=== PATIENT | female | born 1970 | race Hispanic/Latino ===

== ENCOUNTER 2022-04-28 21:16 | Inpatient (IN) | payer SELFPAY ==
[2022-04-28 22:02] LABS: Bilirubin,Urine NEG (Negative); Blood,Urine NEG (Negative); Color,Urine Yellow (Yellow); Protein,Urine <15 mg/dL mg/dL (Negative); RBC,Urine < 1.0 /HPF (0.0-6.0); Urobilinogen,Urine < 2.0 mg/dL (<2.0)
[2022-04-28 22:08] LABS: Basophils # (Auto) 0.1 K/mm3 (0.0-0.1); Basophils % (Auto) 0.7 % (0.0-1.8); Eosinophils # (Auto) 0.4 K/mm3 (0.0-0.4); Hematocrit 46.6 % (30.3-42.9); Hemoglobin 16.1 gm/dl (10.1-14.3); Lymphocytes % (Auto) 10.1 % (13.4-35.0); Mean Corpuscular HGB Conc 35 % (30-34); Mean Corpuscular Volume 84 fl (79-97); Monocytes # (Auto) 0.8 K/mm3 (0.0-0.8); Platelet Count 266 K/mm3 (140-440); Red Blood Count 5.58 M/mm3 (3.65-5.03); Red Cell Distribution Width 13.2 % (13.2-15.2)
[2022-04-28 22:41] LABS: Alanine Aminotransferase 21 units/L (7-56); Albumin 4.8 g/dL (3.9-5); BUN/Creatinine Ratio 29; Blood Urea Nitrogen 20 mg/dL (7-17); Calcium 9.9 mg/dL (8.4-10.2); Hemolysis Index 5
--- NOTE | 2022-04-29 06:32 | Cat Scan Report ---
CT ABDOMEN AND PELVIS WITH CONTRAST INDICATION / CLINICAL INFORMATION: Lower ABD Pain. TECHNIQUE: Axial CT images were obtained through the abdomen and pelvis after IV contrast. All CT sc ans at this location are performed using CT dose reduction for ALARA by means of automated exposure c ontrol. COMPARISON: None available. FINDINGS: LOWER CHEST: No significant abnormality of the imaged chest. LIVER: No focal lesion. No acute findings. GALLBLADDER / BILE DUCTS: No significant abnormality. Biliary ducts grossly unremarkable. SPLEEN: No significant abnormality. PANCREAS: No significant abnormality. ADRENALS: No significant abnormality. KIDNEYS/URETERS: No stones or hydronephrosis. No solid renal lesion. STOMACH / DUODENUM / SMALL BOWEL: The stomach, duodenum, and small bowel demonstrate no significant a bnormality. No specific abnormality of the mesentery demonstrated. COLON: Diverticulosis without acute inflammation. APPENDIX: The appendix remains at upper limits of normal in size measuring 7-8 mm. An appendicolith i s present within the mid appendix. Very minimal periappendiceal inflammatory changes are not excluded . PERITONEUM: No free air or free fluid are present within the abdomen or pelvis. LYMPH NODES: No significant adenopathy. AORTA / ARTERIES: No significant abnormality. IVC / VEINS: No significant abnormality. URINARY BLADDER: No significant abnormality. REPRODUCTIVE ORGANS: Uterus is absent. No significant adnexal abnormality. ADDITIONAL ABDOMINAL/PELVIC FINDINGS: None. SKELETAL SYSTEM: No significant abnormality. IMPRESSION: 1. Very early appendicitis is not excluded. Appendicolith within the mid appendix and very minimal pe riappendiceal inflammatory changes are suggested. Clinical correlation recommended. Signer Name: Jl Reynolds II, MD Signed: 04/29/2022 6:27 AM Workstation Name: [id number]
[2022-04-29] MEDS ORDERED: PIPERACIL/TAZOBACTA 4.5/NS 100 4.5 GM/100 ML VIAL IV ONE (07:15)
[2022-04-29] MEDS ORDERED: SODIUM CHLORIDE 0.9% 1000 ML 1,000 ML IV ONE (07:17)
--- NOTE | 2022-04-29 08:22 | Emergency Department Report ---
ED Abdominal Pain HPI - General Chief Complaint: Abdominal Pain Stated Complaint: VOMITING,SEVERE STOMACH PAIN Time Seen by Provider: 04/29/22 04:59 Source: patient Mode of arrival: Ambulatory Limitations: No Limitations - History of Present Illness Initial Comments: 51-year-old female asthma department complaining of nausea vomiting and abdominal pain off and on since August. She reports having COVID in August and then she developed nausea nausea with some occasional vomiting. Over the last 2 to 3 days she reports a significant worsening in her abdomen abdominal pain across her lower abdomen that radiates over towards the right side is associated with nausea vomiting and some diarrhea as well and a fluctuating fashion. She reports no fever, chills, sweats. No hemoptysis hematemesis hematochezia She presents with her who also confirms he feels like her condition has quickly worsened in the last few days and is concerned of the cause for her discomfort and nauseating symptoms MD Complaint: abdominal pain -: Gradual Radiation: LLQ, RLQ Migration to: no migration Severity: moderate, severe - Related Data Allergies Allergy/AdvReac Type Severity Reaction Status Date / Time No Known Allergies Allergy Unverified 04/28/22 21:27 ED Review of Systems ROS: Stated complaint: VOMITING,SEVERE STOMACH PAIN Other details as noted in HPI Comment: All other systems reviewed and negative ED Past Medical Hx - Past Medical History Previous Medical History?: Yes Hx Diabetes: Yes (Type I) - Surgical History Past Surgical History?: Yes Additional Surgical History: hysterectomy. multiple endometreosis laser sx ED Physical Exam - General Limitations: No Limitations General appearance: alert, in no apparent distress - Head Head exam: Present: atraumatic, normocephalic - Eye Eye exam: Present: normal appearance, PERRL, EOMI - ENT ENT exam: Present: mucous membranes moist - Neck Neck exam: Present: normal inspection - Respiratory Respiratory exam: Present: normal lung sounds bilaterally. Absent: respiratory distress - Cardiovascular Cardiovascular Exam: Present: regular rate, tachycardia. Absent: systolic mur mur, diastolic murmur, rubs, gallop - GI/Abdominal GI/Abdominal exam: Present: soft, tenderness (Across lower abdomen with palpation. No Rovsing, no Carpio Swan there is some discomfort at [place] but no Redmond sign), normal bowel sounds - Extremities Exam Extremities exam: Present: normal inspection, normal capillary refill. Absent: tenderness - Back Exam Back exam: Present: normal inspection. Absent: tenderness, CVA tenderness (L), vertebral tenderness - Neurological Exam Neurological exam: Present: alert, oriented X3 - Psychiatric Psychiatric exam: Present: normal affect, normal mood - Skin Skin exam: Present: warm, dry, intact, normal color. Absent: rash ED Course Vital Signs 04/28/22 21:27 Temperature 98.8 F Pulse Rate 117 H Respiratory 18 Rate Blood Pressure 150/96 O2 Sat by Pulse 97 Oximetry - Consultations Consultation #1: 04/29/22 08:21 Case was discussed with hospitalist Dr. Gates with the findings and laboratory findings as well as vital signs were discussed. Due to the early appendicitis plan is to admit to medicine and the general surgeon will follow along with the case in hopes that this could be treated medically we will initiate Zosyn and fluids Consultation #2: 04/29/22 08:23 Case discussed with the hospitalist who is aware of the of the findings of the CT scan as well as the recommendations of the general surgeon. Plan to admit we will come back to see the patient ED Medical Decision Making - Lab Data Result diagrams: 04/28/22 21:42 04/28/22 21:42 - Radiology Data Radiology results: [place] [address] Cat Scan Report Signed Patient: ARCHANA SERRANO MR#: [id number] : 1970 Acct:[id number] Age/Sex: 51 / F ADM Date: 04/28/22 Loc: ED Attending Dr: Ordering Physician: PRINCESS MILLER Date of Service: 04/29/22 Procedure(s): CT abdomen pelvis w con Accession Number(s): [id number] cc: PRINCESS MILLER CT ABDOMEN AND PELVIS WITH CONTRAST INDICATION / CLINICAL INFORMATION: Lower ABD Pain. TECHNIQUE: Axial CT images were obtained through the abdomen and pelvis after IV contrast. All CT scans at this location are performed using CT dose reduction for ALARA by means of automated exposure control. COMPARISON: None available. FINDINGS: LOWER CHEST: No significant abnormality of the imaged chest. LIVER: No focal lesion. No acute findings. GALLBLADDER / BILE DUCTS: No significant abnormality. Biliary ducts grossly unremarkable. SPLEEN: No significant abnormality. PANCREAS: No significant abnormality. ADRENALS: No significant abnormality. KIDNEYS/URETERS: No stones or hydronephrosis. No solid renal lesion. STOMACH / DUODENUM / SMALL BOWEL: The stomach, duodenum, and small bowel demonstrate no significant abnormality. No specific abnormality of the mesentery demonstrated. COLON: Diverticulosis without acute inflammation. APPENDIX: The appendix remains at upper limits of normal in size measuring 7-8 mm. An appendicolith is present within the mid appendix. Very minimal periappendiceal inflammatory changes are not excluded. PERITONEUM: No free air or free fluid are present within the abdomen or pelvis. LYMPH NODES: No significant adenopathy. AORTA / ARTERIES: No significant abnormality. IVC / VEINS: No significant abnormality. URINARY BLADDER: No significant abnormality. REPRODUCTIVE ORGANS: Uterus is absent. No significant adnexal abnormality. ADDITIONAL ABDOMINAL/PELVIC FINDINGS: None. SKELETAL SYSTEM: No significant abnormality. IMPRESSION: 1. Very early appendicitis is not excluded. Appendicolith within the mid appendix and very minimal periappendiceal inflammatory changes are suggested. Clinical correlation recommended. Signer Name: Herminia Duncan II, MD Signed: 04/29/2022 6:27 AM Workstation Name: [id number] Transcribed By: BENNY Dictated By: HERMINIA DUNCAN II, MD Electronically Authenticated By: HERMINIA DUNCAN II, MD Signed Date/Time: 04/29/22626 DD/ 1 TD/TT: Print Cancel Critical care attestation.: If time is entered above; I have spent that time in minutes in the direct care of this critically ill patient, excluding procedure time. ED Disposition Clinical Impression: Appendicitis, Abdominal pain Disposition: 01 HOME / SELF CARE / HOMELESS Is pt being admited?: Yes Does the pt Need Aspirin: No Condition: Stable Instructions: Abdominal Pain (ED)
--- NOTE | 2022-04-29 08:26 | History and Physical Report ---
History of Present Illness Date of examination: 04/29/22 Date of admission: 04/29/22 Chief complaint: Abdominal pain History of present illness: Patient is a 51-year-old female who presents to the ED with complaints of nausea vomiting and constipation ongoing of for 3 months. Patient was past medical history of hypertension, diabetes mellitus, severe endometriosis status post hysterectomy, prior gastric bypass surgery reports to me that in the last 2 weeks after she had some seafood including salmon her pain got worse. She did tell the ER physician that she has been having this pain on and off for since August says she had COVID. Her history is apparently all over the place. While she did not reveal diarrhea today she did report to the ED if group that she did have diarrhea. She also reports that the sensation she feels in her abdomen feels like burning mainly in the lower part of her abdomen with no radiation. She rated it a 10/10 last night which made her come to the hospital for further evaluation. She tells me that about 3 months ago she was started on Ozempic for her blood sugar control having tried metformin in the past and was unsuccessful she takes this alongside NPH which she takes twice a day and no sliding scale. She reports her A1c is in the 12 range She denies any recent weight loss or unintentional weight loss. She denies any fever. She denies any bile or blood per rectum hematochezia or hemoptysis. She was noted to have leukocytosis Past History Past Medical History: diabetes, hypertension, hyperlipidemia Past Surgical History: hysterectomy (secondary to severe endomiteriosis), Other (gastric bypass) Social history: full code. denies: smoking, alcohol abuse Family history: no significant family history Medications and Allergies Allergies Allergy/AdvReac Type Severity Reaction Status Date / Time No Known Allergies Allergy Unverified 04/28/22 21:27 Review of Systems All systems: negative Constitutional: malaise, lethargy, poor appetite, no weight loss, no weight gain, no fever, no chills, no sweats, no night sweats Cardiovascular: no palpitations, no rapid/irregular heart beat Respiratory: no cough, no cough with sputum, no excessive sputum, no hemoptysis Gastrointestinal: abdominal pain, nausea, vomiting, constipation, no diarrhea, no change in bowel habits, no hematemesis, no coffee ground emesis Exam - Physical Exam Narrative exam: VITAL SIGNS: Reviewed. GENERAL: The patient appears normally developed, Vital signs as documented. HEAD: No signs of head trauma. EYES: Pupils are equal. Extraocular motions intact. EARS: Hearing grossly intact. MOUTH: Oropharynx is normal. NECK: No adenopathy, no JVD. CHEST: Chest with clear breath sounds bilaterally. No wheezes, rales, or rhonchi. CARDIAC: Regular rate and rhythm. S1 and S2, without murmurs, gallops, or rubs. VASCULAR: No Edema. Peripheral pulses normal and equal in all extremities. ABDOMEN: Soft, non tender and non distended. No rebound or guarding, and no masses palpated. Bowel Sounds normal. MUSCULOSKELETAL: Good range of motion of all major joints. Extremities without clubbing, cyanosis or edema. NEUROLOGIC EXAM: Alert and oriented x 3 No focal sensory or strength deficits. Speech normal. Follows commands. PSYCHIATRIC: Mood normal. SKIN: detail exam as documented in skin assessment - Constitutional Vitals: Temp Pulse Resp BP Pulse Ox 98.8 F 117 H 18 150/96 97 04/28/22 21:27 04/28/22 21:27 04/28/22 21:27 04/28/22 21:27 04/28/22 21:27 Results - Labs CBC & Chem 7: 04/28/22 21:42 04/28/22 21:42 Labs: Laboratory Last Values WBC 19.9 K/mm3 (4.5-11.0) H 04/28/22 21:42 RBC 5.58 M/mm3 (3.65-5.03) H 04/28/22 21:42 Hgb 16.1 gm/dl (10.1-14.3) H 04/28/22 21:42 Hct 46.6 % (30.3-42.9) H 04/28/22 21:42 MCV 84 fl (79-97) 04/28/22 21:42 MCH 29 pg (28-32) 04/28/22 21:42 MCHC 35 % (30-34) H 04/28/22 21:42 RDW 13.2 % (13.2-15.2) 04/28/22 21:42 Plt Count 266 K/mm3 (140-440) 04/28/22 21:42 Lymph % (Auto) 10.1 % (13.4-35.0) L 04/28/22 21:42 [place] % (Auto) 4.0 % (0.0-7.3) 04/28/22 21:42 Eos % (Auto) 2.0 % (0.0-4.3) 04/28/22 21:42 Baso % (Auto) 0.7 % (0.0-1.8) 04/28/22 21:42 Lymph # (Auto) 2.0 K/mm3 (1.2-5.4) 04/28/22 21:42 [place] # (Auto) 0.8 K/mm3 (0.0-0.8) 04/28/22 21:42 Eos # (Auto) 0.4 K/mm3 (0.0-0.4) 04/28/22 21:42 Baso # (Auto) 0.1 K/mm3 (0.0-0.1) 04/28/22 21:42 Seg Neutrophils % 83.2 % (40.0-70.0) H 04/28/22 21:42 Seg Neutrophils # 16.6 K/mm3 (1.8-7.7) H 04/28/22 21:42 Sodium 135 mmol/L (137-145) L 04/28/22 21:42 Potassium 4.4 mmol/L (3.6-5.0) 04/28/22 21:42 Chloride 95.4 mmol/L (98-107) L 04/28/22 21:42 Carbon Dioxide 23 mmol/L (22-30) 04/28/22 21:42 Anion Gap 21 mmol/L 04/28/22 21:42 BUN 20 mg/dL (7-17) H 04/28/22 21:42 Creatinine 0.7 mg/dL (0.6-1.2) 04/28/22 21:42 Estimated GFR > 60 ml/min 04/28/22 21:42 BUN/Creatinine Ratio 29 % 04/28/22 21:42 Glucose 242 mg/dL (65-100) H 04/28/22 21:42 Calcium 9.9 mg/dL (8.4-10.2) 04/28/22 21:42 Total Bilirubin 0.70 mg/dL (0.1-1.2) 04/28/22 21:42 AST 18 units/L (5-40) 04/28/22 21:42 ALT 21 units/L (7-56) 04/28/22 21:42 Alkaline Phosphatase 410 units/L (35-129) H 04/28/22 21:42 Total Protein 6.9 g/dL (6.3-8.2) 04/28/22 21:42 Albumin 4.8 g/dL (3.9-5) 04/28/22 21:42 Albumin/Globulin Ratio 2.3 % 04/28/22 21:42 Lipase 31 units/L (13-60) 04/28/22 21:42 Urine Color Yellow (Yellow) 04/28/22 21:43 Urine Turbidity Clear (Clear) 04/28/22 21:43 Urine pH 7.0 (5.0-7.0) 04/28/22 21:43 Ur Specific [place] 1.023 (1.003-1.030) 04/28/22 21:43 Urine Protein <15 mg/dl mg/dL (Negative) 04/28/22 21:43 Urine Glucose (UA) 150 mg/dL (Negative) 04/28/22 21:43 Urine Ketones 80 mg/dL (Negative) 04/28/22 21:43 Urine Blood Neg (Negative) 04/28/22 21:43 Urine Nitrite Neg (Negative) 04/28/22 21:43 Urine Bilirubin Neg (Negative) 04/28/22 21:43 Urine Urobilinogen < 2.0 mg/dL (<2.0) 04/28/22 21:43 Ur Leukocyte Esterase Tr (Negative) 04/28/22 21:43 Urine WBC (Auto) 3.0 /HPF (0.0-6.0) 04/28/22 21:43 Urine RBC (Auto) < 1.0 /HPF (0.0-6.0) 04/28/22 21:43 U Epithel Cells (Auto) 3.0 /HPF (0-13.0) 04/28/22:43 Assessment and Plan Assessment and plan: Patient is a 51-year-old female who presents to the ED with complaints of nausea vomiting and constipation ongoing of for 3 months. Patient was past medical history of hypertension, diabetes mellitus, severe endometriosis status post hysterectomy, prior gastric bypass surgery reports to me that in the last 2 weeks after she had some seafood including salmon her pain got worse. She did tell the ER physician that she has been having this pain on and off for since August says she had COVID. Her history is apparently all over the place. While she did not reveal diarrhea today she did report to the ED if group that she did have diarrhea. She also reports that the sensation she feels in her abdomen feels like burning mainly in the lower part of her abdomen with no radiation. She rated it a 10/10 last night which made her come to the hospital for further evaluation. She tells me that about 3 months ago she was started on Ozempic for her blood sugar control having tried metformin in the past and was unsuccessful she takes this alongside NPH which she takes twice a day and no sliding scale. She reports her A1c is in the 12 range She denies any recent weight loss or unintentional weight loss. She denies any fever. She denies any bile or blood per rectum hematochezia or hemoptysis. She was noted to have leukocytosis IMPRESSION: 1. Very early appendicitis is not excluded. Appendicolith within the mid appendix and very minimal periappendiceal inflammatory changes are suggested. Clinical correlation recommended. SIRS with leukocytosis without organ dysfuntion Acute appendicitis Possible gastroparesis secondary to diabetes mellitus Possible medication related-Ozempic Leukocytosis could be secondary to dehydration versus SIRS Diabetes mellitus with hyperglycemia last A1c per patient around 12 Complex case PLAN Admit patient to [facility] Start empiric antibiotic coverage for possible underlying SIRS no clear evidence of sepsis at this time Obtain cultures Gentle hydration. Surgery and GI consultation Pain control Counseling provided to the patient on appropriate diabetic management weight loss goals diet changes. Dietitian consultation Urinalysis reglan prn keep NPO till eval by consultants and monitor blood glucose. Had extensive discussion with the patient and also with her discussed lifestyle changes, preventive care plans of advance care directives total of 50% of the time spent with 50% dedicated to counseling and evaluation and management of the patient respectively Advance Directives: Yes (full code) VTE prophylaxis?: Chemical, Mechanical Plan of care discussed with patient/family: Yes
[2022-04-29] MEDS ORDERED: NALOXONE 0.4 MG/1 ML INJ IV PRN (09:00)
[2022-04-29] MEDS ORDERED: MORPHINE 2 MG/1 ML INJ IV PRN (09:00)
[2022-04-29] MEDS ORDERED: DEXTROSE 50% IN WATER (25GM) 50 ML SYRINGE IV PRN (09:00)
[2022-04-29] MEDS ORDERED: ACETAMINOPHEN 325 MG TAB PO PRN (09:00)
[2022-04-29] MEDS ORDERED: ALBUTEROL 2.5 MG/3 ML NEBU IH PRN (09:00)
[2022-04-29] MEDS ORDERED: METOCLOPRAMIDE 10 MG/2 ML INJ IV PRN (09:00)
[2022-04-29] MEDS ORDERED: D5W/0.45% NACL 1,000 ML IV SCH (09:00)
[2022-04-29] MEDS ORDERED: ONDANSETRON 4 MG/2 ML INJ IV PRN (09:00)
[2022-04-29 09:29] LABS: Chol/HDL Ratio 3.69 %
[2022-04-29] MEDS: FLUCONAZOLE/NS 100 MG/50 ML 100 MG/50 ML BAG IV SCH (10:16)
[2022-04-29] MEDS: HEPARIN 5,000 UNIT/1 ML VIAL SUB-Q SCH ×3 (13:46→21:54)
[2022-04-29] MEDS: FAMOTIDINE 20 MG/2 ML INJ IV SCH ×2 (14:27→22:54)
[2022-04-29] MEDS: DOCUSATE SODIUM 100 MG CAP PO SCH ×2 (15:02→22:55)
--- NOTE | 2022-04-29 15:07 | Consultation ---
History of Present Illness Consult date: 04/29/22 Reason for consult: abdominal pain - History of present illness History of present illness: General surgery consulted on a 51-year-old female who presented to the emergency room with a 1 day history of acute abdominal pain with nausea and vomiting after eating a meal. When questioned about the details of her symptoms patient says that for the last 6 months patient has been having similar symptoms of diffuse abdominal pain and burning, nausea and vomiting, and intermittent constipation. Patient says about 2 weeks ago she had seen her PCP who diagnosed her with a kidney and bladder infection and started on antibiotics. Patient says that she started to feel better however still having intermittent symptoms and yesterday she decided to come to the emergency room. Patient says that this is similar to previous episodes in the past she was reluctant to go to the emergency room because the patient said that she did not have health insurance. Patient says that currently her pain is moderate, is not localized to any particular area, she has not vomited since 5 PM yesterday and she currently would like something to eat. Patient had a CT scan with findings showing a minimally dilated appendix 7 to 8 mm with an appendicolith suggestive of possible early appendicitis. Past History Past Medical History: diabetes, hypertension, hyperlipidemia, other (endometriosis) Past Surgical History: hysterectomy (secondary to severe endomiteriosis), Other (multiple dx laparoscopies for endometriosis, tummy tuck) Social history: full code. denies: smoking, alcohol abuse Family history: no significant family history Medications and Allergies Allergies Allergy/AdvReac Type Severity Reaction Status Date / Time No Known Allergies Allergy Unverified 04/28/22 21:27 Active Meds: Active Medications Acetaminophen (Acetaminophen 325 Mg Tab) 650 mg PO Q4H PRN PRN Reason: Pain MILD(1-3)/Fever >100.5/DENNIS Albuterol (Albuterol 2.5 Mg/3 Ml Nebu) 2.5 mg IH Q3HRT PRN PRN Reason: Shortness Of Breath Dextrose (Dextrose 50% In Water (25gm) 50 Ml Syringe) 50 ml IV Q30MIN PRN; Protocol PRN Reason: Hypoglycemia Docusate Sodium (Docusate Sodium 100 Mg Cap) 100 mg PO BID MALOU Famotidine (Famotidine 20 Mg/2 Ml Inj) 20 mg IV BID MALOU Last Admin: 04/29/22 14:27 Dose: 20 mg Heparin Sodium (Porcine) (Heparin 5,000 Unit/1 Ml Vial) 5,000 unit SUB-Q Q8HR [facility] Last Admin: 04/29/22 13:46 Dose: 5,000 unit Dextrose/Sodium Chloride (D5/0.45ns) 1,000 mls @ 42 mls/hr IV DIRECT MALOU Fluconazole (Diflucan/Ns 100 Mg/50 Ml) 100 mg in 50 mls @ 50 mls/hr IV Q24H MALOU; Protocol Stop: 05/01/22 08:59 Last Admin: 04/29/22 10:16 Dose: 50 mls/hr Piperacillin Sod/Tazobactam Sod (Zosyn/Ns 4.5gm/100ml) 4.5 gm in 100 mls @ 200 mls/hr IV Q8H MALOU; Protocol Insulin Human Lispro (Insulin Lispro 100 Unit/Ml) 0 unit SUB-Q Q6HR MALOU; Protocol Metoclopramide HCl (Metoclopramide 10 Mg/2 Ml Inj) 10 mg IV Q6H PRN PRN Reason: Nausea And Vomiting Morphine Sulfate (Morphine 2 Mg/1 Ml Inj) 2 mg IV Q6H PRN PRN Reason: Pain, Moderate (4-6) Naloxone HCl (Naloxone 0.4 Mg/1 Ml Inj) 0.1 mg IV Q2MIN PRN PRN Reason: Res Rate </= 8 or 02 SAT < 92% Ondansetron HCl (Ondansetron 4 Mg/2 Ml Inj) 4 mg IV Q4H PRN PRN Reason: Nausea And Vomiting Sodium Chloride (Sodium Chloride 0.9% 10 Ml Flush Syringe) 10 ml IV BID [facility] Last Admin: 04/29/22 14:27 Dose: 10 ml Sodium Chloride (Sodium Chloride 0.9% 10 Ml Flush Syringe) 10 ml IV PRN PRN PRN Reason: LINE FLUSH Review of Systems All systems: negative - Constitutional no poor appetite - Gastrointestinal abdominal pain, nausea, constipation Exam Vital Signs Temp Pulse Resp BP Pulse Ox 98.8 F 117 H 18 150/96 97 04/28/22 21:27 04/28/22 21:27 04/28/22 21:27 04/28/22 21:27 04/28/22 21:27 - General physical appearance Positive: well developed, no distress, moderate pain - Respiratory Positive: normal expansion, normal respiratory effort - Cardiovascular Heart Sounds: Present: S1 & S2 - Extremities Extremities: no ischemia - Abdomen Abdomen: Present: soft, other (Generalized tenderness to deep palpation). Absent: distended, rebound, guarding, rigid - Neurologic Neurologic: alert and oriented to time, place and person - Psychiatric Psychiatric: appropriate mood/affect, cooperative Results - Labs 04/28/22 21:42 04/28/22 21:42 Abnormal lab results 04/28/22 04/28/22 04/29/22 Range/Units 21:42 21:42 08:26 WBC 19.9 H (4.5-11.0) K/mm3 RBC 5.58 H (3.65-5.03) M/mm3 Hgb 16.1 H (10.1-14.3) gm/dl Hct 46.6 H (30.3-42.9) % MCHC 35 H (30-34) % Lymph % (Auto) 10.1 L (13.4-35.0) % Seg Neutrophils % 83.2 H (40.0-70.0) % Seg Neutrophils # 16.6 H (1.8-7.7) K/mm3 Sodium 135 L (137-145) mmol/L Chloride 95.4 L (98-107) mmol/L BUN 20 H (7-17) mg/dL Glucose 242 H (65-100) mg/dL POC Glucose (70-105) mg/dL Hemoglobin A1c 11.8 H (4-6) % Alkaline Phosphatase 410 H (35-129) units/L Triglycerides (2-149) mg/dL 04/29/22 04/29/22 Range/Units 08:26 12:15 WBC (4.5-11.0) K/mm3 RBC (3.65-5.03) M/mm3 Hgb (10.1-14.3) gm/dl Hct (30.3-42.9) % MCHC (30-34) % Lymph % (Auto) (13.4-35.0) % Seg Neutrophils % (40.0-70.0) % Seg Neutrophils # (1.8-7.7) K/mm3 Sodium (137-145) mmol/L Chloride (98-107) mmol/L BUN (7-17) mg/dL Glucose (65-100) mg/dL POC Glucose 243 H (70-105) mg/dL Hemoglobin A1c (4-6) % Alkaline Phosphatase (35-129) units/L Triglycerides 150 H (2-149) mg/dL Diabetes panel 04/28/22 04/29/22 04/29/22 Range/Units 21:42 08:26 08:26 Sodium 135 L (137-145) mmol/L Potassium 4.4 (3.6-5.0) mmol/L Chloride 95.4 L (98-107) mmol/L Carbon Dioxide 23 (22-30) mmol/L BUN 20 H (7-17) mg/dL Creatinine 0.7 (0.6-1.2) mg/dL Glucose 242 H (65-100) mg/dL Hemoglobin A1c 11.8 H (4-6) % Calcium 9.9 (8.4-10.2) mg/dL AST 18 (5-40) units/L ALT 21 (7-56) units/L Alkaline Phosphatase 410 H (35-129) units/L Total Protein 6.9 (6.3-8.2) g/dL Albumin 4.8 (3.9-5) g/dL Triglycerides 150 H (2-149) mg/dL HDL Cholesterol 46 (40-59) mg/dL Calcium panel 04/28/22 Range/Units 21:42 Calcium 9.9 (8.4-10.2) mg/dL Albumin 4.8 (3.9-5) g/dL Pituitary panel 04/28/22 Range/Units 21:42 Sodium 135 L (137-145) mmol/L Potassium 4.4 (3.6-5.0) mmol/L Chloride 95.4 L (98-107) mmol/L Carbon Dioxide 23 (22-30) mmol/L BUN 20 H (7-17) mg/dL Creatinine 0.7 (0.6-1.2) mg/dL Glucose 242 H (65-100) mg/dL Calcium 9.9 (8.4-10.2) mg/dL Adrenal panel 04/28/22 Range/Units 21:42 Sodium 135 L (137-145) mmol/L Potassium 4.4 (3.6-5.0) mmol/L Chloride 95.4 L (98-107) mmol/L Carbon Dioxide 23 (22-30) mmol/L BUN 20 H (7-17) mg/dL Creatinine 0.7 (0.6-1.2) mg/dL Glucose 242 H (65-100) mg/dL Calcium 9.9 (8.4-10.2) mg/dL Total Bilirubin 0.70 (0.1-1.2) mg/dL AST 18 (5-40) units/L ALT 21 (7-56) units/L Alkaline Phosphatase 410 H (35-129) units/L Total Protein 6.9 (6.3-8.2) g/dL Albumin 4.8 (3.9-5) g/dL - Imaging CT scan - abdomen: report reviewed, image reviewed CT scan - pelvis: report reviewed, image reviewed Assessment and Plan 51-year-old female with chronic (6 months) vague abdominal symptoms to include generalized pain nausea and vomiting. Findings on CT scan with questionable early appendicitis. Afebrile and stable with leukocytosis. Discussed CT scan findings with the patient in correlation with her history and am not convinced that her appendix is the cause of her abdominal complaints. Recommend GI consultation and antibiotics. It after that evaluation the appendix is thought to be a contributing factor or she clinically manifest more symptoms suggesting that the appendix is the source of her symptoms can do appendectomy this admission. Patient is a diabetic with a hemoglobin A1c of 11.8 consistent with uncontrolled diabetes. Recommend tight glucose control as uncontrolled diabetes can also be the cause of generalized abdominal complaints such as gastroparesis and dysmotility disorder. Will continue to follow. Patient can have clear liquids if she tolerates.
[2022-04-29 16:31] LABS: Bacteria,Urine 2+ /HPF (Negative); Bilirubin,Urine NEG (Negative); Blood,Urine NEG (Negative); Color,Urine Yellow (Yellow); Mucus,Urine FEW /HPF; Protein,Urine <15 mg/dL mg/dL (Negative); Urobilinogen,Urine < 2.0 mg/dL (<2.0)
[2022-04-29] MEDS: PIPERACIL/TAZOBACTA 4.5/NS 100 4.5 GM/100 ML VIAL IV SCH (21:45)
[2022-04-29] MEDS: INSULIN LISPRO 100 UNIT/ML SUB-Q SCH ×2 (21:47→22:49)
[2022-04-30] MEDS: INSULIN LISPRO 100 UNIT/ML SUB-Q SCH ×3 (01:25→12:54)
[2022-04-30] MEDS: PIPERACIL/TAZOBACTA 4.5/NS 100 4.5 GM/100 ML VIAL IV SCH ×2 (01:26→09:49)
[2022-04-30] MEDS ORDERED: HYDROcodone/ACETAMINOPHEN 5-325 MG TAB PO ONE (01:48)
[2022-04-30] MEDS: HEPARIN 5,000 UNIT/1 ML VIAL SUB-Q SCH ×2 (05:05→14:14)
[2022-04-30 05:30] LABS: Basophils % (Auto) 0.3 % (0.0-1.8); Eosinophils # (Auto) 0.6 K/mm3 (0.0-0.4); Eosinophils % (Auto) 6.2 % (0.0-4.3); Hematocrit 40.9 % (30.3-42.9); Hemoglobin 13.8 gm/dl (10.1-14.3); Lymphocytes # (Auto) 4.2 K/mm3 (1.2-5.4); Lymphocytes % (Auto) 39.9 % (13.4-35.0); Mean Corpuscular HGB Conc 34 % (30-34); Mean Corpuscular Volume 84 fl (79-97); Monocytes # (Auto) 0.5 K/mm3 (0.0-0.8); Monocytes % (Auto) 5.1 % (0.0-7.3); Platelet Count 228 K/mm3 (140-440)
[2022-04-30] MEDS: FLUCONAZOLE/NS 100 MG/50 ML 100 MG/50 ML BAG IV SCH (09:48)
[2022-04-30] MEDS: FAMOTIDINE 20 MG/2 ML INJ IV SCH (09:48)
[2022-04-30] MEDS: DOCUSATE SODIUM 100 MG CAP PO SCH (09:48)
--- NOTE | 2022-04-30 10:44 | Gastroenterology Consultation ---
History of Present Illness - Reason for Consult Consult date: 04/30/22 abd pain - History of Present Illness Ms. Bellamy is a 51 y/o F who presented to the ED w/ abd pain and vomiting. Pt reports that she has been experiencing n/v and alternating constipation/diarrhea for several months. A history was difficult to obtain given tangential speaking. Endorses epigastric pain that makes her "feel sick to her stomach." Additionally, she reports a "sulfur" like taste in her mouth. She describes diffuse lower abdominal pain, but endorses that she has had a hysterectomy and lost sensation in some areas, making if difficult to differentiate where her pain originates. She reports being uninsured, which makes it difficult for her to seek care regularly and control her DMII. CT revealed possible early appendicitis, surgery has been consulted. No previous EGD/Colon reported. Denies use of NSAIDs or alcohol. Denies melena, hematemesis, or hematachezia. Denies BM or emesis since admission. Past History Past Medical History: diabetes, hypertension, hyperlipidemia, other (endometriosis) Past Surgical History: hysterectomy (secondary to severe endomiteriosis), Other (multiple dx laparoscopies for endometriosis, tummy tuck) Social history: full code. denies: smoking, alcohol abuse Family history: no significant family history Medications and Allergies Allergies Allergy/AdvReac Type Severity Reaction Status Date / Time No Known Allergies Allergy Unverified 04/28/22 21:27 Home Medications Medication Instructions Recorded Confirmed Last Taken Type Amlodipine Besylate [Norvasc] 10 mg PO DAILY 04/30/22 04/30/22 Unknown History Cholecalciferol (Vitd3)/Vit K2 1 each PO DAILY 04/30/22 04/30/22 Unknown History [K2-D3 10,000 Unit Capsule] HYDROcodone/APAP 10-325 [Morgan 10 mg PO BID PRN 04/30/22 04/30/22 Unknown History 10-325 mg TAB] Lisinopril [Zestril TAB] 30 mg PO QDAY 04/30/22 04/30/22 Unknown History Lovastatin 20 mg PO HS 04/30/22 04/30/22 Unknown History metFORMIN [Glucophage] 500 mg PO BID 04/30/22 04/30/22 Unknown History Active Meds: Active Medications Acetaminophen (Acetaminophen 325 Mg Tab) 650 mg PO Q4H PRN PRN Reason: Pain MILD(1-3)/Fever >100.5/DENNIS Albuterol (Albuterol 2.5 Mg/3 Ml Nebu) 2.5 mg IH Q3HRT PRN PRN Reason: Shortness Of Breath Dextrose (Dextrose 50% In Water (25gm) 50 Ml Syringe) 50 ml IV Q30MIN PRN; Protocol PRN Reason: Hypoglycemia Docusate Sodium (Docusate Sodium 100 Mg Cap) 100 mg PO BID MALOU Last Admin: 04/30/22 09:48 Dose: 100 mg Famotidine (Famotidine 20 Mg/2 Ml Inj) 20 mg IV BID [facility] Last Admin: 04/30/22 09:48 Dose: 20 mg Heparin Sodium (Porcine) (Heparin 5,000 Unit/1 Ml Vial) 5,000 unit SUB-Q Q8HR [facility] Last Admin: 04/30/22 05:05 Dose: 5,000 unit Dextrose/Sodium Chloride (D5/0.45ns) 1,000 mls @ 42 mls/hr IV DIRECT MALOU Last Admin: 04/29/22 22:41 Dose: 42 mls/hr Fluconazole (Diflucan/Ns 100 Mg/50 Ml) 100 mg in 50 mls @ 50 mls/hr IV Q24H [facility]; Protocol Stop: 05/01/22 08:59 Last Admin: 04/30/22 09:48 Dose: 50 mls/hr Piperacillin Sod/Tazobactam Sod (Zosyn/Ns 4.5gm/100ml) 4.5 gm in 100 mls @ 200 mls/hr IV Q8H [facility]; Protocol Last Admin: 04/30/22 09:49 Dose: 200 mls/hr Insulin Human Lispro (Insulin Lispro 100 Unit/Ml) 0 unit SUB-Q Q6HR MALOU; Protoc ol Last Admin: 04/30/22 05:13 Dose: 4 unit Metoclopramide HCl (Metoclopramide 10 Mg/2 Ml Inj) 10 mg IV Q6H PRN PRN Reason: Nausea And Vomiting Morphine Sulfate (Morphine 2 Mg/1 Ml Inj) 2 mg IV Q6H PRN PRN Reason: Pain, Moderate (4-6) Last Admin: 04/29/22 22:54 Dose: 2 mg Naloxone HCl (Naloxone 0.4 Mg/1 Ml Inj) 0.1 mg IV Q2MIN PRN PRN Reason: Res Rate </= 8 or 02 SAT < 92% Ondansetron HCl (Ondansetron 4 Mg/2 Ml Inj) 4 mg IV Q4H PRN PRN Reason: Nausea And Vomiting Sodium Chloride (Sodium Chloride 0.9% 10 Ml Flush Syringe) 10 ml IV BID MALOU Last Admin: 04/30/22 09:48 Dose: 10 ml Sodium Chloride (Sodium Chloride 0.9% 10 Ml Flush Syringe) 10 ml IV PRN PRN PRN Reason: LINE FLUSH Review of Systems - Review of Systems Gastrointestinal: abdominal pain, nausea, vomiting, diarrhea, constipation Exam - Constitutional Vital Signs: Temp Pulse Resp BP Pulse Ox 98.6 F 91 H 18 141/84 97 04/30/22 04:22 04/30/22 04:22 04/30/22 04:22 04/30/22 04:22 04/30/22 10:26 General appearance: no acute distress - EENT ENT: hearing intact - Gastrointestinal General gastrointestinal: Present: soft, tender, non-distended - Integumentary Integumentary: Present: clear, warm, dry - Neurologic Neurological: alert and oriented x3 - Labs CBC & Chem 7: 04/30/22 04:49 04/28/22 21:42 Lab Results: Laboratory Results - last 24 hr 04/29/22 04/29/22 04/29/22 12:15 14:28 21:37 WBC RBC Hgb Hct MCV MCH MCHC RDW Plt Count Lymph % (Auto) [place] % (Auto) Eos % (Auto) Baso % (Auto) Lymph # (Auto) [place] # (Auto) Eos # (Auto) Baso # (Auto) Seg Neutrophils % Seg Neutrophils # POC Glucose 243 H 277 H Urine Color Yellow Urine Turbidity Slightly-cloudy Urine pH 7.0 Ur Specific [place] 1.044 H Urine Protein <15 mg/dl Urine Glucose (UA) >=500 Urine Ketones Neg Urine Blood Neg Urine Nitrite Neg Urine Bilirubin Neg Urine Urobilinogen < 2.0 Ur Leukocyte Esterase Lg Urine WBC (Auto) 20.0 H Urine RBC (Auto) 2.0 U Epithel Cells (Auto) 39.0 H Urine Bacteria (Auto) 2+ Urine Mucus Few Urine Yeast (Budding) Few 04/30/22 04/30/22 04:49 05:07 WBC 10.4 RBC 4.90 Hgb 13.8 Hct 40.9 MCV 84 MCH 28 MCHC 34 RDW 13.0 L Plt Count 228 Lymph % (Auto) 39.9 H [place] % (Auto) 5.1 Eos % (Auto) 6.2 H Baso % (Auto) 0.3 Lymph # (Auto) 4.2 [place] # (Auto) 0.5 Eos # (Auto) 0.6 H Baso # (Auto) 0.0 Seg Neutrophils % 48.5 Seg Neutrophils # 5.0 POC Glucose 235 H Urine Color Urine Turbidity Urine pH Ur Specific [place] Urine Protein Urine Glucose (UA) Urine Ketones Urine Blood Urine Nitrite Urine Bilirubin Urine Urobilinogen Ur Leukocyte Esterase Urine WBC (Auto) Urine RBC (Auto) U Epithel Cells (Auto) Urine Bacteria (Auto) Urine Mucus Urine Yeast (Budding) Assessment and Plan 1. Abd pain - suspect appendicitis vs adhesions/scar tissue vs IBS-M vs other - recommend outpatient GI f/u for abd pain - CT did not reveal an acute source of pain other than possible early appendicitis - continue pain management 2. N/V - suspect GERD vs gastroparesis vs appendicitis vs other - continue Pepcid - continue Zofran - recommend outpatient GI f/u to evaluate possible gastroparesis/GERD - CT did not reveal an acute source of N/V other than possible early appendicitis
[2022-04-30 13:09] VITALS: BP 140/79
--- NOTE | 2022-04-30 13:31 | Progress Note ---
Assessment and Plan 51-year-old female with chronic (6 months) vague abdominal symptoms to include generalized pain nausea and vomiting. Findings on CT scan with questionable early appendicitis. Afebrile and stable with normalization of white blood cell count. Discussed CT scan findings with the patient in correlation with her history and am not convinced that her appendix is the cause of her abdominal complaints. Discussed with the patient and her partner at length that the findings on CT scan suggesting possible early appendicitis could be treated with medical therapy to include antibiotics as a course of action. She asked if I believe that the appendix could be the cause of her 6 months of generalized abdominal complaints and I told her I did not believe so. Patient has very poorly controlled diabetes which could be the cause of her generalized abdominal complaints. At this time patient decided she does not want have to surgery to remove her appendix and would like to try a course of antibiotics. I expressed the patient if her symptoms change she should repeat imaging to see if the findings in the appendix have changed and her pins could be removed in the future. I also discussed with her at length to have a discussion with social work to plan on getting health care assistance to allow for her to see specialist such as crusher loader equipment operator and property staff accountant for outpatient follow-up to better control her comorbidities. Patient expressed understanding. No surgery is planned at this time. We will sign off. Subjective Date of service: 04/30/22 Narrative: No acute events overnight. Patient says that she still having some discomfort but overall she is better compared to yesterday. She denies any nausea or vomiting. She continues stated she is hungry. GI consulted on her and recommended outpatient work-up for generalized abdominal complaints such as reflux, nausea and vomiting which may be due to gastroparesis. Objective Vital Signs - 12hr 04/30/22 04/30/22 04/30/22 01:36 04:22 09:21 Temperature 98.6 F Pulse Rate 91 H Respiratory 18 Rate Blood Pressure Blood Pressure 141/84 [Right] O2 Sat by Pulse 97 98 98 Oximetry 04/30/22 04/30/22 10:26 12:25 Temperature 98.2 F Pulse Rate 85 Respiratory 16 Rate Blood Pressure 140/79 Blood Pressure [Right] O2 Sat by Pulse 97 97 Oximetry - General physical appearance well developed, no distress, no pain - ENT no hearing loss - Respiratory normal expansion, normal respiratory effort - Abdomen soft, not rebound, not guarding, not rigid, other (Mild generalized tenderness to deep palpation) - Psychiatric oriented to time, oriented to person - Labs 04/30/22 04:49 04/28/22 21:42
--- NOTE | 2022-04-30 13:56 | Discharge Summary ---
Providers - Providers Date of Admission: 04/29/22 08:16 Date of discharge: 04/30/22 Attending physician: JESSENIA VELÁSQUEZ MD 04/29/22 08:15 Consult to Physician [CONS] Routine Comment: Consulting Provider: MIKAYLA VIDALES Physician Instructions: Reason For Exam: appendicitis 04/29/22 08:16 Consult to Physician [CONS] Routine Comment: Consulting Provider: DIANE QUINONES Physician Instructions: Reason For Exam: abdominal pain, constipation, vomting x 2 months 04/29/22 08:20 Consult to Dietitian/Nutrition [CONS] Routine Physician Instructions: Reason For Exam: Reason for Consult: Diet education Hospitalization Reason for admission: appendicitis Condition: Stable Hospital course: Patient is a 51-year-old female with medical history of hypertension and uncontrolled diabetes who presented to the ED with complaints of nausea/vomiting and constipation x3 months. Please follow CDC guidelines for isolation for COVID-19 infection. You have to self quarantine starting 5 days after your positive test (). You must continue to self quarantine as long as you have symptoms such as fever, shortness of breath, cough, sore throat etc. If you do not have any symptoms after self quarantining for 5 total days, you must wear masks for the following 5 days when in contact with others or in public spaces. Of the abdomen and pelvis showed possible early appendicitis. General surgery was consulted and recommended medical management due to lack of signs/symptoms of complicated appendicitis. Empiric IV antibiotics were started. GI was consulted and recommended follow-up outpatient for evaluation for gastroparesis. It was felt that many of her complaints were due to the effect of uncontrolled diabetes to her GI system. Patient was counseled on importance of establishing primary care, endocrinology care for tighter glucose control. Patient was discharged with a 7-day course of oral antibiotics. Disposition: 30 STILL A PATIENT Final Discharge Diagnosis (Prints w/discharge instructions): SIRS with leukocytosis without organ dysfunction. Early acute appendicitis. Volume depletion. Possible gastroparesis secondary to diabetes colitis. Type 2 diabetes mellitus with hyperglycemia Time spent for discharge: 35 minutes Core Measure Documentation - Palliative Care Palliative Care/ Comfort Measures: Not Applicable - Core Measures Any of the following diagnoses?: none Exam - Physical Exam Narrative exam: GENERAL: Well-developed well-nourished. In no acute distress. HEENT: Normocephalic. Atraumatic. NECK: Supple. CHEST/LUNGS: CTAB on room air HEART/CARDIOVASCULAR: RRR. No murmur, rubs or gallops appreciated. ABDOMEN: +BS. NT/ND. SKIN: No rashes noted. NEURO: No focal motor deficit. Follows all commands. MUSCULOSKELETAL: No joint effusion EXTREMITIES: No cyanosis, clubbing or edema. PSYCH: Cooperative. - Constitutional Vitals: Temp Pulse Resp BP Pulse Ox 98.2 F 85 16 140/79 97 04/30/22 12:25 04/30/22 12:25 04/30/22 12:25 04/30/22 12:25 04/30/22 12:25 Plan Activity: advance as tolerated Diet: diabetic Care Plan Goals: Please follow-up again with a primary care provider at [facility]. Please take all antibiotics as recommended. Please follow-up with a school lunch monitor for work-up of possible gastroparesis. Refill your abdominal issues are due to uncontrolled diabetes. When you are able please make sure to follow-up with an adjunct sociology professor for closer monitoring of your diabetes. Follow up with: ROSEMARY OLSEN MD [Other] - 3-5 Days DIANE QUINONES MD [Staff Physician] - 6 Weeks Prescriptions: AtorvaSTATin [Lipitor] 40 mg PO QHS 30 Days #30 tab amLODIPine 10 mg PO DAILY 30 Days #30 tab metroNIDAZOLE [Flagyl] 500 mg PO Q8HR 7 Days #21 tablet levoFLOXacin [Levaquin] 750 mg PO QDAY 7 Days #7 tablet Lisinopril [Zestril TAB] 30 mg PO QDAY 30 Days #30 tab
== END 2022-04-30 15:35 | disposition home or self-care (01) | DRG 74 ==
LOC: ED 21:16 → 3A 04-29 08:16
PROVIDERS: ADMIT Internal Medicine; ATTEND Student in an Organized Health Care Education/Training Program
DX: E11.43 Type 2 diabetes mellitus with diabetic autonomic (poly)neuropathy (principal); K35.80 Unspecified acute appendicitis; R65.10 Systemic inflammatory response syndrome (SIRS) of non-infectious origin without acute organ dysfunction; E11.65 Type 2 diabetes mellitus with hyperglycemia; E86.0 Dehydration; K21.9 Gastro-esophageal reflux disease without esophagitis; K52.9 Noninfective gastroenteritis and colitis, unspecified; I10 Essential (primary) hypertension; E78.5 Hyperlipidemia, unspecified; K31.84 Gastroparesis; Z90.710 Acquired absence of both cervix and uterus; Z98.84 Bariatric surgery status; Z79.899 Other long term (current) drug therapy
CPT/HCPCS: 36415; 74177; 80053; 80061; 81001; 82962; 83036; 83690; 85025; 87040; 87086; 94640; G0378; J3490; J7070; Q9967; J1450; J1644; J1815; J2270; J2543; J7030